=== PATIENT | male | born 1990 | race Caucasian/White ===

== ENCOUNTER 2017-12-16 13:25 | Emergency (ER) | payer OTHER ==
[2017-12-16 13:49] VITALS: TEMP 98.9
--- NOTE | 2017-12-16 14:48 | CPEKG ---
Heart Rate: 51 RR Interval: 1176 P-R Interval: 140 QRSD Interval: 90 QT Interval: 448 QTC Interval: 413 P [place]: 51 QRS [place]: 46 T Wave [place]: 28 EKG Severity - NORMAL ECG - EKG Impression: SINUS RHYTHM Electronically Signed By: John Dias 18-Dec-2017 09:38:44
--- NOTE | 2017-12-16 15:12 | EDPHY ---
H & P Time Seen by Provider: 12/16/17 15:04 HPI/ROS: CHIEF COMPLAINT: "I think I had an anxiety attack " HISTORY OF PRESENT ILLNESS: The patient is a 27-year-old male with past medical history of anxiety attack who presents to the emergency department with similar complaints. The patient states that he suddenly felt lightheaded and faint. He felt overwhelming "sense of doom. "He states he used to have similar anxiety attacks while in college but not for the past 6 years. He has had no recent illnesses. He denies any drugs or alcohol. No chest pain or shortness of breath. No chest pain. No abdominal pain. No recent hair loss or weight change. The patient is able to exercise without being lightheaded or dizzy. REVIEW OF SYSTEMS: My complete review of systems is negative except as mentioned in the HPI. Past Medical/Surgical History: Anxiety Past surgical history: Negative Social history: Patient does not smoke or use drugs. Denies recent alcohol use. Smoking Status: Never smoked Physical Exam: 37.2, 134/82, 69, 18, 99% on room air GENERAL: Well-appearing, in no acute distress, alert. HEENT: Eyes normal to inspection, normal pharynx, no signs of dehydration. NECK: No thyromegaly, no lymphadenopathy, supple. RESPIRATORY: Clear to auscultation bilaterally, no rales, rhonchi or wheezing. CVS: Regular rate and rhythm, no rubs, murmurs, or gallops. ABDOMEN: Soft, nontender, nondistended, no organomegaly. BACK: Normal to inspection, no CVA tenderness. SKIN: Normal color, no rash, warm, dry. No pallor. EXTREMITIES: No pedal edema, no calf tenderness, no Homans sign or cords, no joint swelling. NEURO/PSYCH: Alert and oriented x3, normal mood and affect, normal motor sensory exam. No obvious cranial nerve deficit. Constitutional: Initial Vital Signs Temperature (C) 37.2 C 12/16/17 13:46 Heart Rate 69 12/16/17 13:46 Respiratory Rate 18 12/16/17 13:46 Blood Pressure 134/82 H 12/16/17 13:46 O2 Sat (%) 99 12/16/17 13:46 O2 Delivery Mode Room Air Allergies/Adverse Reactions: No Known Allergies Allergy (Unverified 08/29/12 21:41) Home Medications: Medication Instructions Recorded NK [No Known Home Meds] 12/16/17 Medical Decision Making ED Course/Re-evaluation: In the emergency department I discussed possible etiologies with the patient. I answered all his questions. At time of my evaluation he had no complaints. He felt back to baseline. EKG shows normal sinus rhythm, normal rate, normal axis, normal intervals. There are no ST or T-wave abnormalities. EKG is normal as interpreted by me. I discussed the EKG results with the patient. I gave him warnings prior to leaving. He will return with worsening symptoms. He has no complaints on recheck. He is given warnings prior to leaving. He will return with worsening symptoms. He is given follow-up with the primary care physician. Differential Diagnosis: My differential includes but is not limited to dysrhythmia, anemia, thyroid disease, electrolyte abnormality, sugar abnormality, anxiety Departure - Departure Disposition: Home, Routine, Self-Care Clinical Impression: Palpitations, Anxiety Condition: Good Instructions: Anxiety (ED), Heart Palpitations (ED) Additional Instructions: Return with increasing symptoms, lightheadedness, dizziness, chest pain or any other concerns. You been given follow-up information with the primary care physician. Call to make an appointment. Referrals: Maday Gay MD [Medical Doctor] - 5-7 days, call for appt.
[2017-12-16 16:03] VITALS: BP 110/69; PULSE 58; RESP 16; O2SAT 96
== END 2017-12-16 16:02 | disposition home or self-care (01) ==
DX: F41.9 Anxiety disorder, unspecified (principal); R00.2 Palpitations